=== PATIENT | male | born 1960 | race Caucasian/White ===

== ENCOUNTER → 2017-01-12 | Outpatient (CLI) | payer OTHER ==
--- NOTE | 2017-01-12 08:57 | DIAGNOSTIC IMAGING REPORT ---
LEFT KNEE INCLUDING BILATERAL STANDING AP VIEWS CLINICAL HISTORY: Left knee pain x 2 weeks TRAUMA COMPARISON: None. DISCUSSION: No acute fractures are visualized. There are mild osteoarthritic changes present. There are tiny dorsal patellar spurs. There is no significant joint effusion. No erosive or destructive changes are evident. IMPRESSION: Mild degenerative change. No acute fractures identified. Electronically signed by: Layo Arriaza M.D. 01/12/2017 8:55 AM Dictated Date/Time: 01/12/2017 8:55 AM
== END | disposition home or self-care (01) ==
LOC: C.RDSM 08:15
PROVIDERS: ATTEND Internal Medicine
DX: M25.569 Pain in unspecified knee (principal)